=== PATIENT | male | born 1995 | race Caucasian/White ===

== ENCOUNTER → 2016-05-25 | Outpatient (REF) | payer BC ==
[2016-05-25 17:13] LABS: MEAN CORPUSCULAR HEMOGLOBIN 30.8 pg (27.0-33.0); MEAN CORPUSCULAR HGB CONC 34.7 g/dl (32.0-36.5); MEAN CORPUSCULAR VOLUME 88.7 fl (80.0-96.0); RED CELL DISTRIBUTION WIDTH 12.8 % (11.5-14.5); WHITE BLOOD COUNT 8.5 K/mm3 (4.0-10.0)
[2016-05-25 17:42] LABS: ALBUMIN 4.4 GM/DL (3.2-5.2); ALBUMIN/GLOBULIN RATIO 1.42 (1.00-1.93); ALKALINE PHOSPHATASE 107 U/L (45-117); ALT/SGPT 270 U/L (12-78); ANION GAP 11 MEQ/L (8-16); AST/SGOT 101 U/L (15-37); BILIRUBIN,TOTAL 1.4 MG/DL (0.2-1.0); BLOOD UREA NITROGEN 15 MG/DL (7-18); CALCIUM LEVEL 9.4 MG/DL (8.5-10.1); CARBON DIOXIDE LEVEL 28 MEQ/L (21-32); CHLORIDE LEVEL 104 MEQ/L (98-107); CREATININE FOR GFR 0.95 MG/DL (0.70-1.30); GLOMERULAR FILTRATION RATE > 60.0 (>60); GLUCOSE, FASTING 302 MG/DL (70-105); SODIUM LEVEL 143 MEQ/L (136-145); TOTAL PROTEIN 7.5 GM/DL (6.4-8.2)
[2016-05-25 20:13] LABS: BACTERIA, URINE SMALL AMOUNT; HYALINE CAST, URINE NONE SEEN /lpf (0-1); SQUAMOUS EPITHELIAL CELL URINE SMALL AMOUNT /hpf (SMALL AMT)
[2016-05-25 20:14] LABS: MICROSCOPIC EXAM PERFORMED
[2016-05-29 00:08] LABS: GAD-65 AUTOANTIBODY <5.0 U/mL (0.0-5.0)
[2016-05-31 09:06] LABS: GAMMA GLUTAMYLTRANSPEPTIDASE 89 U/L (15-85)
== END ==
LOC: M SFHCLERA 11:56
PROVIDERS: ATTEND Physician Assistant
DX: K21.9 Gastro-esophageal reflux disease without esophagitis (principal); R81 Glycosuria; R82.4 Acetonuria; R31.9 Hematuria, unspecified

== ENCOUNTER 2016-06-26 23:59 | Emergency (ER) | payer BC ==
[2016-06-27] MEDS ORDERED: ONDANSETRON 4MG/2ML VIAL (J2405) As Ordered ONE (01:40)
[2016-06-27 02:22] LABS: BASO % 0.2 % (0.0-1.0); EOS # 0.1 K/mm3 (0.0-0.50); EOS % 0.9 % (0.0-3.0); LARGE UNSTAINED CELL # 0.3 K/mm3 (0.0-0.4); LARGE UNSTAINED CELL % 2.4 % (0.0-4.0); LYMPH # 1.5 K/mm3 (1.5-6.5); LYMPH % 14.6 % (24.0-44.0); MEAN CORPUSCULAR HEMOGLOBIN 29.2 pg (27.0-33.0); MEAN CORPUSCULAR HGB CONC 34.3 g/dl (32.0-36.5); MEAN CORPUSCULAR VOLUME 85.2 fl (80.0-96.0); MONO # 0.6 K/mm3 (0.0-0.8); MONO % 5.6 % (0.0-5.0); NEUTROPHILS # 7.9 K/mm3 (1.8-7.7); NEUTROPHILS % 76.3 % (36.0-66.0); PLATELET COUNT, AUTOMATED 167 k/mm3 (150-450); RED CELL DISTRIBUTION WIDTH 12.9 % (11.5-14.5); WHITE BLOOD COUNT 10.3 K/mm3 (4.0-10.0)
[2016-06-27 02:53] LABS: ALBUMIN 3.7 GM/DL (3.2-5.2); ALBUMIN/GLOBULIN RATIO 1.12 (1.00-1.93); ALKALINE PHOSPHATASE 58 U/L (45-117); ALT/SGPT 193 U/L (12-78); AMYLASE 18 U/L (25-115); ANION GAP 10 MEQ/L (8-16); AST/SGOT 61 U/L (15-37); BILIRUBIN,DIRECT 0.3 MG/DL (0.0-0.2); BILIRUBIN,TOTAL 1.9 MG/DL (0.2-1.0); BLOOD UREA NITROGEN 14 MG/DL (7-18); CALCIUM LEVEL 8.3 MG/DL (8.5-10.1); CARBON DIOXIDE LEVEL 24 MEQ/L (21-32); CHLORIDE LEVEL 108 MEQ/L (98-107); CREATININE FOR GFR 0.83 MG/DL (0.70-1.30); GLOMERULAR FILTRATION RATE > 60.0 (>60); GLUCOSE, FASTING 150 MG/DL (70-105); POTASSIUM SERUM 3.3 MEQ/L (3.5-5.1); SODIUM LEVEL 142 MEQ/L (136-145)
--- NOTE | 2016-06-27 04:55 | EDDOCDS ---
Nurse's Notes [facility] Name: Jules Rowell Age: 21 yrs Sex: Male : 1995 Arrival Date: 06/26/2016 Time: 23:59 Bed 5 Private MD: Diagnosis: Noninfective gastroenteritis and colitis, unspecified Presentation: 06/27 00:34 Presenting complaint: Patient states: Woke Tuesday morning with vomiting and diarrhea. kmg1 Tried BRAT diet and did ok until started feeling ill again at 2200 Tuesday night. Vomiting clear fluid. Diarrhea subsided. Cold chills. Suicide/Homicide risk assessment- the patient denies having any suicidal and/or homicidal ideations and does not present with any other emotional, behavioral or mental health complaints. Status: Patient is not a auto service representative or dependent. Transition of care: patient was not received from another setting of care. 00:34 Method Of Ar[place] [place] Adult Sepsis Screening: The patient does not have new or worsening altered mentation. km Patient's respiratory rate is less than 22. Systolic blood pressure is greater than 100. Patient has a qSOFA score of 0- Negative Sepsis Screen. 00:39 Acuity: [place] [facility] [place]: 00:39 General: Appears in no apparent distress, comfortable, Behavior is appropriate for age, kmg1 cooperative, pleasant. Pain: Location: abdomen Pain currently is 7 out of 10 on a pain scale. Quality of pain is described as crampy, sharp. Pt Declines HIV testing. Respiratory: Reports Chest congestion. GI: Reports nausea, vomiting. Historical: - Allergies: No known drug Allergies; - Home Meds: 1. metformin 500 mg Oral tab 1 tab 2 times per day (Last dose: 06/26/2016 09:00) 2. omeprazole 40 mg Oral cpDR 1 cap once daily (Last dose: 06/26/2016 09:00) - PMHx: Diabetes - NIDDM: controlled; GERD; - PSHx: Tonsillectomy; Tube in Left Ear; - Social history: Smoking status: Patient states was never smoker of tobacco. No barriers to communication noted, The patient speaks fluent Cym[place], Speaks appropriately for age. - Family history: No immediate family members are acutely ill. - : The pt / caregiver states he / she is not on anticoagulants. Home medication list is obtained from the patient. - Exposure Risk Screening:: None identified. Screenin:54 Screening information is obtained from the patient. Fall risk: No risks identified. nn1 Assistance ADL's: requires no assistance with activities of daily living. Abuse/DV Screen: The patient / caregiver reports he/she is: not in a situation that causes fear, pain or injury. Nutritional screening: No deficits noted. Advance Directives: There is no active DNR order. home support is adequate. Assessment: 01:24 General: Appears in no apparent distress, comfortable, Behavior is appropriate for age, nn1 cooperative. Neurological: Level of Consciousness is awake, alert, obeys commands, Oriented to person, place, time. Respiratory: Airway is patent Respiratory effort is even, unlabored, Respiratory pattern is regular, symmetrical, Breath sounds are clear bilaterally. Reports cough that is since yesterday. GI: Abdomen is non- distended obese, Bowel sounds present X 4 quads. Abd is soft X 4 quads Reports diarrhea, nausea, vomiting, Vomiting began Tuesday, had diarrhea on Tuesday but none Tuesday. Derm: Skin is pink, warm & dry. 02:21 General: Patient denies abdominal pain, reports nausea. Patient medicated per orders, nn1 fluids infusing. . 03:18 General: Patient reports nausea has improved. . nn1 04:53 Reassessment: Patient states feeling better. Patient states symptoms have improved. nn1 General: Appears in no apparent distress, comfortable, Behavior is appropriate for age, cooperative. Neurological: Level of Consciousness is awake, alert, Oriented to person, place, time. Respiratory: Airway is patent Respiratory effort is even, unlabored, Respiratory pattern is regular, symmetrical. Derm: Skin is pink, warm & dry. Vital Signs: 00:39 BP 137 / 84; Pulse 113; Resp 18; Temp 98.7(O); Pulse Ox 96% on R/A; Weight 127.01 kg kmg1 (R); Height 6 ft. 0 in. (182.88 cm) (R); Pain 7/10; 04:53 BP 127 / 75; Pulse 95; Resp 18; Temp 99.3(O); Pulse Ox 98% on R/A; Pain 0/10; nn1 00:39 Body Mass Index 37.97 (127.01 kg, 182.88 cm) kmg1 Vitals: 00:39 Log In Time: June 27, 2016 [place] 00:00[place] [facility] [place]: 00:00 Patient visited by Elaine Sarmiento Reg. hs2 00:00 Patient moved to Waiting hs2 00:37 Patient moved to Triage 1 tm5 00:43 Triage Initiated kmg1 00:43 Patient moved to 5 km 01:21 Denys Amaya DO is Attending Physician. mm11 01:21 Patient visited by Denys Amaya DO. mm11 01:35 Patient visited by Denys Amaya DO. mm11 02:20 Liver Profile Sent. nn1 02:20 Lipase Sent. nn1 02:20 CBC with Diff Sent. nn1 02:20 Basic Metabolic Profile Sent. nn1 02:20 Amylase Sent. nn1 02:21 Patient visited by Elaine Trinidad RN. nn1 02:21 Inserted saline lock: 20 gauge in right antecubital area and blood collected. The nn1 patient tolerated the procedure well. 02:35 [facility] Payment Agreement was scanned into [employer] and attached to record. hs2 02:39 Patient name changed from Jules\S\\S\Rowell\S\ to Jules\S\ \S\Rowell. EDMS 02:55 Patient visited by Elaine Trinidad RN. nn1 03:53 Patient visited by Denys Amaya DO. mm11 04:44 Patient visited by Denys Amaya DO. mm11 04:54 The patient / caregiver is instructed regarding the plan of care and ED course. nn1 04:54 No procedures done that require assistance. nn1 Administered Medications: 02:20 Drug: NS 0.9% 1000 ml [sodium chloride 0.9 % intravenous solution] Route: IV; Rate: nn1 bolus; Site: right antecubital; 02:20 Drug: Ondansetron 4 mg [ondansetron HCl 2 mg/mL intravenous solution (2 mL)] Route: nn1 IVP; Site: right antecubital; 03:11 Not Given (Other Intervention Used): Lidocaine Cream 4 % 1 applic Topical once; do not mm11 repeat a dose in less than 2 hours Intake: 04:53 IV: 1000.00ml (NS); Total: 1000.00ml. nn1 Order Results: Lab Order: Amylase; SPEC'M 06/27/16 02:16 Test: AMYLASE; Value: 18; Range: 25-115; Abnormal: Below low normal; Units: U/L; Status: F Lab Order: Basic Metabolic Profile; SPEC'06/27/16 02:16 Test: GLUCOSE, FASTING; Value: 150; Range: 70-105; Abnormal: Above high normal; Units: MG/DL; Status: F Test: BLOOD UREA NITROGEN; Value: 14; Range: 7-18; Units: MG/DL; Status: F Test: CREATININE FOR GFR; Value: 0.83; Range: 0.70-1.30; Units: MG/DL; Status: F Test: GLOMERULAR FILTRATION RATE; Value: > 60.0; Range: >60; Status: F Test: SODIUM LEVEL; Value: 142; Range: 136-145; Units: MEQ/L; Status: F Test: POTASSIUM SERUM; Value: 3.3; Range: 3.5-5.1; Abnormal: Below low normal; Units: MEQ/L; Status: F Test: CHLORIDE LEVEL; Value: 108; Range: 98-107; Abnormal: Above high normal; Units: MEQ/L; Status: F Test: CARBON DIOXIDE LEVEL; Value: 24; Range: 21-32; Units: MEQ/L; Status: F Test: ANION GAP; Value: 10; Range: 8-16; Units: MEQ/L; Status: F Test: CALCIUM LEVEL; Value: 8.3; Range: 8.5-10.1; Abnormal: Below low normal; Units: MG/DL; Status: F Test Note: ; Units are mL/min/1.73 m2 Chronic Kidney Disease Staging per NKF: Stage I & II GFR >=60 Normal to Mildly Decreased Stage III GFR 30-59 Moderately Decreased Stage IV GFR 15-29 Severely Decreased Stage V GFR <15 Very Little GFR Left ESRD 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 <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 Lab Order: CBC with Diff; SPEC06/27/16 02:16 Test: WHITE BLOOD COUNT; Value: 10.3; Range: 4.0-10.0; Abnormal: Above high normal; Units: K/mm3; Status: F Test: RED BLOOD COUNT; Value: 5.52; Range: 4.30-6.10; Units: M/mm3; Status: F Test: HEMOGLOBIN; Value: 16.2; Range: 14.0-18.0; Units: g/dl; Status: F Test: HEMATOCRIT; Value: 47.1; Range: 42.0-52.0; Units: %; Status: F Test: MEAN CORPUSCULAR VOLUME; Value: 85.2; Range: 80.0-96.0; Units: fl; Status: F Test: MEAN CORPUSCULAR HEMOGLOBIN; Value: 29.2; Range: 27.0-33.0; Units: pg; Status: F Test: MEAN CORPUSCULAR HGB CONC; Value: 34.3; Range: 32.0-36.5; Units: g/dl; Status: F Test: RED CELL DISTRIBUTION WIDTH; Value: 12.9; Range: 11.5-14.5; Units: %; Status: F Test: PLATELET COUNT, AUTOMATED; Value: 167; Range: 150-450; Units: k/mm3; Status: F Test: NEUTROPHILS %; Value: 76.3; Range: 36.0-66.0; Abnormal: Above high normal; Units: %; Status: F Test: LYMPH %; Value: 14.6; Range: 24.0-44.0; Abnormal: Below low normal; Units: %; Status: F Test: MONO %; Value: 5.6; Range: 0.0-5.0; Abnormal: Above high normal; Units: %; Status: F Test: EOS %; Value: 0.9; Range: 0.0-3.0; Units: %; Status: F Test: BASO %; Value: 0.2; Range: 0.0-1.0; Units: %; Status: F Test: LARGE UNSTAINED CELL %; Value: 2.4; Range: 0.0-4.0; Units: %; Status: F Test: NEUTROPHILS #; Value: 7.9; Range: 1.8-7.7; Abnormal: Above high normal; Units: K/mm3; Status: F Test: LYMPH #; Value: 1.5; Range: 1.5-6.5; Units: K/mm3; Status: F Test: MONO #; Value: 0.6; Range: 0.0-0.8; Units: K/mm3; Status: F Test: EOS #; Value: 0.1; Range: 0.0-0.50; Units: K/mm3; Status: F Test: BASO #; Value: 0.0; Range: 0.0-0.2; Units: K/mm3; Status: F Test: LARGE UNSTAINED CELL #; Value: 0.3; Range: 0.0-0.4; Units: K/mm3; Status: F Lab Order: Lipase; SPEC' 06/27/16 02:16 Test: LIPASE; Value: 59; Range: 73-393; Abnormal: Below low normal; Units: U/L; Status: F Lab Order: Liver Profile; SPEC' 06/27/16 02:16 Test: AST/SGOT; Value: 61; Range: 15-37; Abnormal: Above high normal; Units: U/L; Status: F Test: ALT/SGPT; Value: 193; Range: 12-78; Abnormal: Above high normal; Units: U/L; Status: F Test: ALKALINE PHOSPHATASE; Value: 58; Range: 45-117; Units: U/L; Status: F Test: BILIRUBIN,TOTAL; Value: 1.9; Range: 0.2-1.0; Abnormal: Above high normal; Units: MG/DL; Status: F Test: BILIRUBIN,DIRECT; Value: 0.3; Range: 0.0-0.2; Abnormal: Above high normal; Units: MG/DL; Status: F Test: TOTAL PROTEIN; Value: 7.0; Range: 6.4-8.2; Units: GM/DL; Status: F Test: ALBUMIN; Value: 3.7; Range: 3.2-5.2; Units: GM/DL; Status: F Test: ALBUMIN/GLOBULIN RATIO; Value: 1.12; Range: 1.00-1.93; Status: F Outcome: 04:45 Discharge ordered by Provider. mm11 04:54 Discharge Assessment: Patient awake, alert and oriented x 3. No cognitive and/or nn1 functional deficits noted. Patient verbalized understanding of disposition instructions. patient administered narcotics - no. The following High Risk Discharge criteria are identified: None. Discharged to home ambulatory. Condition: stable Condition: improved. No special radiology studies were completed. Property :Personal belongings accompany Pt. 04:55 Patient left the ED. nn1 Signatures: Dispatcher [employer] EDMS Elida Mederos, RN RN kmg1 Denys Amaya, DO MATHEWS mm11 Elaine TrinidadRN RN nn1 Elaine Sarmiento, Jorge Reg hs2 Martha Collado RN RN tm5 MTDD
--- NOTE | 2016-06-27 04:55 | EDDOCDS ---
Physician Documentation [facility] Name: Jules Rowell Age: 21 yrs Sex: Male : 1995 Arrival Date: 06/26/2016 Time: 23:59 Bed 5 Private MD: Disposition: 06/27/16 04:45 Discharged to Home/Self Care. Impression: Noninfective gastroenteritis and colitis, unspecified. - Condition is Stable. - Discharge Instructions: Viral Gastroenteritis, Viral Gastroenteritis, [id number]. - Prescriptions for Zofran 4 mg Oral Tablet - take 1 tablet by ORAL route 4 times per day As needed; 10 tablet. - Medication Reconciliation, Local Pharmacy Hours form. - Follow up: Private Physician; When: As needed; Reason: Continuance of care. - Problem is an acute exacerbation. - Symptoms have improved. Historical: - Allergies: No known drug Allergies; - Home Meds: 1. metformin 500 mg Oral tab 1 tab 2 times per day (Last dose: 06/26/2016 09:00) 2. omeprazole 40 mg Oral cpDR 1 cap once daily (Last dose: 06/26/2016 09:00) - PMHx: Diabetes - NIDDM: controlled; GERD; - PSHx: Tonsillectomy; Tube in Left Ear; - Social history: Smoking status: Patient states was never smoker of tobacco. No barriers to communication noted, The patient speaks fluent [place], Speaks appropriately for age. - Family history: No immediate family members are acutely ill. - : The pt / caregiver states he / she is not on anticoagulants. Home medication list is obtained from the patient. - Exposure Risk Screening:: None identified. Vital Signs: 06/27 00:39 BP 137 / 84; Pulse 113; Resp 18; Temp 98.7(O); Pulse Ox 96% on R/A; Weight 127.01 kg / kmg1 280.01 lbs (R); Height 6 ft. 0 in. (182.88 cm) (R); Pain 7/10; 04:53 BP 127 / 75; Pulse 95; Resp 18; Temp 99.3(O); Pulse Ox 98% on R/A; Pain 0/10; nn1 00:39 Body Mass Index 37.97 (127.01 kg, 182.88 cm) km MDM: 01:36 NS 0.9% 1000 ml IV at bolus once ordered. mm11 01:36 Ondansetron 4 mg IVP once ordered. mm11 01:36 IV Saline Lock ordered. mm11 01:36 Undress patient appropriately for examination ordered. mm11 01:37 Amylase Ordered. EDMS 01:37 Basic Metabolic Profile Ordered. EDMS 01:37 CBC with Diff Ordered. EDMS 01:37 Lipase Ordered. EDMS 01:37 Liver Profile Ordered. EDMS 01:38 NOTHING BY MOUTH+DIET ordered. EDMS 02:13 Financial registration complete. hs2 02:35 [facility] Payment Agreement was scanned into [email or web address] and attached to record. hs2 03:07 Amylase Reviewed. mm11 03:07 Basic Metabolic Profile Reviewed. mm11 03:07 CBC with Diff Reviewed. mm11 03:07 Lipase Reviewed. mm11 03:07 Liver Profile Reviewed. mm11 03:08 Lidocaine Cream 4 % 1 applic Topical once; do not repeat a dose in less than 2 hours mm11 ordered. Administered Medications: 02:20 Drug: NS 0.9% 1000 ml [sodium chloride 0.9 % intravenous solution] Route: IV; Rate: nn1 bolus; Site: right antecubital; 02:20 Drug: Ondansetron 4 mg [ondansetron HCl 2 mg/mL intravenous solution (2 mL)] Route: nn1 IVP; Site: right antecubital; 03:11 Not Given (Other Intervention Used): Lidocaine Cream 4 % 1 applic Topical once; do not mm11 repeat a dose in less than 2 hours Signatures: [facility] Elida Mederos RN RN kmg1 Denys Amaya, DO mm11 Elaine Trinidad RN RN nn1 Elaine Sarmiento, Reg Reg hs2 The chart was reviewed and I authenticate all verbal orders and agree with the evaluation and treatment provided.Attachments: 02:35 [facility] Payment Agreement hs2 MTDD
--- NOTE | 2016-06-29 05:57 | EDDOCDS ---
Physician Documentation [facility] Name: Jules Rowell Age: 21 yrs Sex: Male : 1995 Arrival Date: 06/26/2016 Time: 23:59 Bed 5 Private MD: Disposition: 06/27/16 04:45 Discharged to Home/Self Care. Impression: Noninfective gastroenteritis and colitis, unspecified. - Condition is Stable. - Discharge Instructions: Viral Gastroenteritis, Viral Gastroenteritis, [id number]. - Prescriptions for Zofran 4 mg Oral Tablet - take 1 tablet by ORAL route 4 times per day As needed; 10 tablet. - Medication Reconciliation, Local Pharmacy Hours form. - Follow up: Private Physician; When: As needed; Reason: Continuance of care. - Problem is an acute exacerbation. - Symptoms have improved. Historical: - Allergies: No known drug Allergies; - Home Meds: 1. metformin 500 mg Oral tab 1 tab 2 times per day (Last dose: 06/26/2016 09:00) 2. omeprazole 40 mg Oral cpDR 1 cap once daily (Last dose: 06/26/2016 09:00) - PMHx: Diabetes - NIDDM: controlled; GERD; - PSHx: Tonsillectomy; Tube in Left Ear; - Social history: Smoking status: Patient states was never smoker of tobacco. No barriers to communication noted, The patient speaks fluent [place]raini, Speaks appropriately for age. - Family history: No immediate family members are acutely ill. - : The pt / caregiver states he / she is not on anticoagulants. Home medication list is obtained from the patient. - Exposure Risk Screening:: None identified. Vital Signs: 06/27 00:39 BP 137 / 84; Pulse 113; Resp 18; Temp 98.7(O); Pulse Ox 96% on R/A; Weight 127.01 kg / kmg1 280.01 lbs (R); Height 6 ft. 0 in. (182.88 cm) (R); Pain 7/10; 04:53 BP 127 / 75; Pulse 95; Resp 18; Temp 99.3(O); Pulse Ox 98% on R/A; Pain 0/10; nn1 00:39 Body Mass Index 37.97 (127.01 kg, 182.88 cm) km MDM: 01:36 NS 0.9% 1000 ml IV at bolus once ordered. mm11 01:36 Ondansetron 4 mg IVP once ordered. mm11 01:36 IV Saline Lock ordered. mm11 01:36 Undress patient appropriately for examination ordered. mm11 01:37 Amylase Ordered. EDMS 01:37 Basic Metabolic Profile Ordered. EDMS 01:37 CBC with Diff Ordered. EDMS 01:37 Lipase Ordered. EDMS 01:37 Liver Profile Ordered. EDMS 01:38 NOTHING BY MOUTH+DIET ordered. EDMS 02:13 Financial registration complete. hs2 02:35 [facility] Payment Agreement was scanned into [employer] and attached to record. hs2 03:07 Amylase Reviewed. mm11 03:07 Basic Metabolic Profile Reviewed. mm11 03:07 CBC with Diff Reviewed. mm11 03:07 Lipase Reviewed. mm11 03:07 Liver Profile Reviewed. mm11 03:08 Lidocaine Cream 4 % 1 applic Topical once; do not repeat a dose in less than 2 hours mm11 ordered. 22:17 T-Sheet-- Draft Copy was scanned into [employer] and attached to record. klr Administered Medications: 02:20 Drug: NS 0.9% 1000 ml [sodium chloride 0.9 % intravenous solution] Route: IV; Rate: nn1 bolus; Site: right antecubital; 04:55 Follow up: IV Status: Completed infusion; IV Intake: 1000ml nn1 02:20 Drug: Ondansetron 4 mg [ondansetron HCl 2 mg/mL intravenous solution (2 mL)] Route: nn1 IVP; Site: right antecubital; 03:11 Not Given (Other Intervention Used): Lidocaine Cream 4 % 1 applic Topical once; do not mm11 repeat a dose in less than 2 hours Signatures: Dispatcher [employer] EDMS Elida Mederos RN RN kmg1 Denys Amaya, DO DO mm11 Elaine Trinidad RN RN nn1 Elaine Sarmiento, Reg Reg hs2 Erin Cesar klr The chart was reviewed and I authenticate all verbal orders and agree with the evaluation and treatment provided.Attachments: 02:35 [facility] Payment Agreement hs2 22:17 T-Sheet-- Draft Copy klr Chart Complete MTDD
--- NOTE | 2016-06-29 05:57 | EDDOCDS ---
Nurse's Notes [facility] Name: Jules Rowell Age: 21 yrs Sex: Male : 1995 Arrival Date: 06/26/2016 Time: 23:59 Bed 5 Private MD: Diagnosis: Noninfective gastroenteritis and colitis, unspecified Presentation: 06/27 00:34 Presenting complaint: Patient states: Woke Tuesday morning with vomiting and diarrhea. kmg1 Tried BRAT diet and did ok until started feeling ill again at 2200 Tuesday night. Vomiting clear fluid. Diarrhea subsided. Cold chills. Suicide/Homicide risk assessment- the patient denies having any suicidal and/or homicidal ideations and does not present with any other emotional, behavioral or mental health complaints. 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 Transition of care: patient was not received from another setting of care. 00:34 Method Of Arrival: [facility] 00:39 Adult Sepsis Screening: The patient does not have new or worsening altered mentation. km Patient's respiratory rate is less than 22. Systolic blood pressure is greater than 100. Patient has a qSOFA score of 0- Negative Sepsis Screen. 00:39 Acuity: RAULITO Level 3 [facility] Triage Assessment: 00:39 General: Appears in no apparent distress, comfortable, Behavior is appropriate for age, kmg1 cooperative, pleasant. Pain: Location: abdomen Pain currently is 7 out of 10 on a pain scale. Quality of pain is described as crampy, sharp. Pt Declines HIV testing. Respiratory: Reports Chest congestion. GI: Reports nausea, vomiting. Historical: - Allergies: No known drug Allergies; - Home Meds: 1. metformin 500 mg Oral tab 1 tab 2 times per day (Last dose: 06/26/2016 09:00) 2. omeprazole 40 mg Oral cpDR 1 cap once daily (Last dose: 06/26/2016 09:00) - PMHx: Diabetes - NIDDM: controlled; GERD; - PSHx: Tonsillectomy; Tube in Left Ear; - Social history: Smoking status: Patient states was never smoker of tobacco. No barriers to communication noted, The patient speaks fluent Kenyan, Speaks appropriately for age. - Family history: No immediate family members are acutely ill. - : The pt / caregiver states he / she is not on anticoagulants. Home medication list is obtained from the patient. - Exposure Risk Screening:: None identified. Screenin:54 Screening information is obtained from the patient. Fall risk: No risks identified. nn1 Assistance ADL's: requires no assistance with activities of daily living. Abuse/DV Screen: The patient / caregiver reports he/she is: not in a situation that causes fear, pain or injury. Nutritional screening: No deficits noted. Advance Directives: There is no active DNR order. home support is adequate. Assessment: 01:24 General: Appears in no apparent distress, comfortable, Behavior is appropriate for age, nn1 cooperative. Neurological: Level of Consciousness is awake, alert, obeys commands, Oriented to person, place, time. Respiratory: Airway is patent Respiratory effort is even, unlabored, Respiratory pattern is regular, symmetrical, Breath sounds are clear bilaterally. Reports cough that is since yesterday. GI: Abdomen is non- distended obese, Bowel sounds present X 4 quads. Abd is soft X 4 quads Reports diarrhea, nausea, vomiting, Vomiting began Tuesday, had diarrhea on Tuesday but none Tuesday. Derm: Skin is pink, warm & dry. 02:21 General: Patient denies abdominal pain, reports nausea. Patient medicated per orders, nn1 fluids infusing. . 03:18 General: Patient reports nausea has improved. . nn1 04:53 Reassessment: Patient states feeling better. Patient states symptoms have improved. nn1 General: Appears in no apparent distress, comfortable, Behavior is appropriate for age, cooperative. Neurological: Level of Consciousness is awake, alert, Oriented to person, place, time. Respiratory: Airway is patent Respiratory effort is even, unlabored, Respiratory pattern is regular, symmetrical. Derm: Skin is pink, warm & dry. Vital Signs: 00:39 BP 137 / 84; Pulse 113; Resp 18; Temp 98.7(O); Pulse Ox 96% on R/A; Weight 127.01 kg kmg1 (R); Height 6 ft. 0 in. (182.88 cm) (R); Pain 7/10; 04:53 BP 127 / 75; Pulse 95; Resp 18; Temp 99.3(O); Pulse Ox 98% on R/A; Pain 0/10; nn1 00:39 Body Mass Index 37.97 (127.01 kg, 182.88 cm) kmg1 Vitals: 00:39 Log In Time: June 27, 2016 at 00:00. [facility] ED Course: 00:00 Patient visited by Elaine Sarmiento Reg. hs2 00:00 Patient moved to Waiting hs2 00:37 Patient moved to Triage 1 tm5 00:43 Triage Initiated kmg1 00:43 Patient moved to 5 km 01:21 Denys Amaya DO is Attending Physician. mm11 01:21 Patient visited by Denys Amaya DO. mm11 01:35 Patient visited by Denys Amaya DO. mm11 02:20 Liver Profile Sent. nn1 02:20 Lipase Sent. nn1 02:20 CBC with Diff Sent. nn1 02:20 Basic Metabolic Profile Sent. nn1 02:20 Amylase Sent. nn1 02:21 Patient visited by Elaine Trinidad RN. nn1 02:21 Inserted saline lock: 20 gauge in right antecubital area and blood collected. The nn1 patient tolerated the procedure well. 02:35 [facility] Payment Agreement was scanned into [employer] and attached to record. hs2 02:39 Patient name changed from Jules\S\\S\Rowell\S\ to Jules\S\ \S\Rowell. EDMS 02:55 Patient visited by Elaine Trinidad RN. nn1 03:53 Patient visited by Denys Amaya DO. mm11 04:44 Patient visited by Denys Amaya DO. mm11 04:54 The patient / caregiver is instructed regarding the plan of care and ED course. nn1 04:54 No procedures done that require assistance. nn1 22:17 T-Sheet-- Draft Copy was scanned into [employer] and attached to record. klr Administered Medications: 02:20 Drug: NS 0.9% 1000 ml [sodium chloride 0.9 % intravenous solution] Route: IV; Rate: nn1 bolus; Site: right antecubital; 04:55 Follow up: IV Status: Completed infusion; IV Intake: 1000ml nn1 02:20 Drug: Ondansetron 4 mg [ondansetron HCl 2 mg/mL intravenous solution (2 mL)] Route: nn1 IVP; Site: right antecubital; 03:11 Not Given (Other Intervention Used): Lidocaine Cream 4 % 1 applic Topical once; do not mm11 repeat a dose in less than 2 hours Intake: 04:53 IV: 1000.00ml (NS); Total: 1000.00ml. nn1 04:55 IV: 1000.00ml; Total: 2000.00ml. nn1 Order Results: Lab Order: Amylase; [facility] 06/27/16 02:16 Test: AMYLASE; Value: 18; Range: 25-115; Abnormal: Below low normal; Units: U/L; Status: F Lab Order: Basic Metabolic Profile; [facility] 06/27/16 02:16 Test: GLUCOSE, FASTING; Value: 150; Range: 70-105; Abnormal: Above high normal; Units: MG/DL; Status: F Test: BLOOD UREA NITROGEN; Value: 14; Range: 7-18; Units: MG/DL; Status: F Test: CREATININE FOR GFR; Value: 0.83; Range: 0.70-1.30; Units: MG/DL; Status: F Test: GLOMERULAR FILTRATION RATE; Value: > 60.0; Range: >60; Status: F Test: SODIUM LEVEL; Value: 142; Range: 136-145; Units: MEQ/L; Status: F Test: POTASSIUM SERUM; Value: 3.3; Range: 3.5-5.1; Abnormal: Below low normal; Units: MEQ/L; Status: F Test: CHLORIDE LEVEL; Value: 108; Range: 98-107; Abnormal: Above high normal; Units: MEQ/L; Status: F Test: CARBON DIOXIDE LEVEL; Value: 24; Range: 21-32; Units: MEQ/L; Status: F Test: ANION GAP; Value: 10; Range: 8-16; Units: MEQ/L; Status: F Test: CALCIUM LEVEL; Value: 8.3; Range: 8.5-10.1; Abnormal: Below low normal; Units: MG/DL; Status: F Test Note: ; Units are mL/min/1.73 m2 Chronic Kidney Disease Staging per NKF: Stage I & II GFR >=60 Normal to Mildly Decreased Stage III GFR 30-59 Moderately Decreased Stage IV GFR 15-29 Severely Decreased Stage V GFR <15 Very Little GFR Left ESRD 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 <15 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: CBC with Diff; SPEC' 06/27/16 02:16 Test: WHITE BLOOD COUNT; Value: 10.3; Range: 4.0-10.0; Abnormal: Above high normal; Units: K/mm3; Status: F Test: RED BLOOD COUNT; Value: 5.52; Range: 4.30-6.10; Units: M/mm3; Status: F Test: HEMOGLOBIN; Value: 16.2; Range: 14.0-18.0; Units: g/dl; Status: F Test: HEMATOCRIT; Value: 47.1; Range: 42.0-52.0; Units: %; Status: F Test: MEAN CORPUSCULAR VOLUME; Value: 85.2; Range: 80.0-96.0; Units: fl; Status: F Test: MEAN CORPUSCULAR HEMOGLOBIN; Value: 29.2; Range: 27.0-33.0; Units: pg; Status: F Test: MEAN CORPUSCULAR HGB CONC; Value: 34.3; Range: 32.0-36.5; Units: g/dl; Status: F Test: RED CELL DISTRIBUTION WIDTH; Value: 12.9; Range: 11.5-14.5; Units: %; Status: F Test: PLATELET COUNT, AUTOMATED; Value: 167; Range: 150-450; Units: k/mm3; Status: F Test: NEUTROPHILS %; Value: 76.3; Range: 36.0-66.0; Abnormal: Above high normal; Units: %; Status: F Test: LYMPH %; Value: 14.6; Range: 24.0-44.0; Abnormal: Below low normal; Units: %; Status: F Test: MONO %; Value: 5.6; Range: 0.0-5.0; Abnormal: Above high normal; Units: %; Status: F Test: EOS %; Value: 0.9; Range: 0.0-3.0; Units: %; Status: F Test: BASO %; Value: 0.2; Range: 0.0-1.0; Units: %; Status: F Test: LARGE UNSTAINED CELL %; Value: 2.4; Range: 0.0-4.0; Units: %; Status: F Test: NEUTROPHILS #; Value: 7.9; Range: 1.8-7.7; Abnormal: Above high normal; Units: K/mm3; Status: F Test: LYMPH #; Value: 1.5; Range: 1.5-6.5; Units: K/mm3; Status: F Test: MONO #; Value: 0.6; Range: 0.0-0.8; Units: K/mm3; Status: F Test: EOS #; Value: 0.1; Range: 0.0-0.50; Units: K/mm3; Status: F Test: BASO #; Value: 0.0; Range: 0.0-0.2; Units: K/mm3; Status: F Test: LARGE UNSTAINED CELL #; Value: 0.3; Range: 0.0-0.4; Units: K/mm3; Status: F Lab Order: Lipase; SPEC' 06/27/16 02:16 Test: LIPASE; Value: 59; Range: 73-393; Abnormal: Below low normal; Units: U/L; Status: F Lab Order: Liver Profile; SPEC' 06/27/16 02:16 Test: AST/SGOT; Value: 61; Range: 15-37; Abnormal: Above high normal; Units: U/L; Status: F Test: ALT/SGPT; Value: 193; Range: 12-78; Abnormal: Above high normal; Units: U/L; Status: F Test: ALKALINE PHOSPHATASE; Value: 58; Range: 45-117; Units: U/L; Status: F Test: BILIRUBIN,TOTAL; Value: 1.9; Range: 0.2-1.0; Abnormal: Above high normal; Units: MG/DL; Status: F Test: BILIRUBIN,DIRECT; Value: 0.3; Range: 0.0-0.2; Abnormal: Above high normal; Units: MG/DL; Status: F Test: TOTAL PROTEIN; Value: 7.0; Range: 6.4-8.2; Units: GM/DL; Status: F Test: ALBUMIN; Value: 3.7; Range: 3.2-5.2; Units: GM/DL; Status: F Test: ALBUMIN/GLOBULIN RATIO; Value: 1.12; Range: 1.00-1.93; Status: F Outcome: 04:45 Discharge ordered by Provider. mm11 04:54 Discharge Assessment: Patient awake, alert and oriented x 3. No cognitive and/or nn1 functional deficits noted. Patient verbalized understanding of disposition instructions. patient administered narcotics - no. The following High Risk Discharge criteria are identified: None. Discharged to home ambulatory. Condition: stable Condition: improved. No special radiology studies were completed. Property :Personal belongings accompany Pt. 04:55 Patient left the ED. nn1 Signatures: Dispatcher [employer] EDMS Elida Mederos, RN RN kmg1 Denys Amaya, DO mm11 Elaine TrinidadRN RN nn1 Elaine Sarmiento, Reg Reg hs2 Erin Cesar Tonya, RN RN tm5 Chart Complete MTDD
--- NOTE | 2016-06-29 05:57 | EDDOCDS ---
Physician Documentation [facility] Name: Jules Rowell Age: 21 yrs Sex: Male : 1995 Arrival Date: 06/26/2016 Time: 23:59 Bed 5 Private MD: Disposition: 06/27/16 04:45 Discharged to Home/Self Care. Impression: Noninfective gastroenteritis and colitis, unspecified. - Condition is Stable. - Discharge Instructions: Viral Gastroenteritis, Viral Gastroenteritis, Phiq-up-Ibzl. - Prescriptions for Zofran 4 mg Oral Tablet - take 1 tablet by ORAL route 4 times per day As needed; 10 tablet. - Medication Reconciliation, Local Pharmacy Hours form. - Follow up: Private Physician; When: As needed; Reason: Continuance of care. - Problem is an acute exacerbation. - Symptoms have improved. Historical: - Allergies: No known drug Allergies; - Home Meds: 1. metformin 500 mg Oral tab 1 tab 2 times per day (Last dose: 06/26/2016 09:00) 2. omeprazole 40 mg Oral cpDR 1 cap once daily (Last dose: 06/26/2016 09:00) - PMHx: Diabetes - NIDDM: controlled; GERD; - PSHx: Tonsillectomy; Tube in Left Ear; - Social history: Smoking status: Patient states was never smoker of tobacco. No barriers to communication noted, The patient speaks fluent Turkish, Speaks appropriately for age. - Family history: No immediate family members are acutely ill. - : The pt / caregiver states he / she is not on anticoagulants. Home medication list is obtained from the patient. - Exposure Risk Screening:: None identified. Vital Signs: 06/27 00:39 BP 137 / 84; Pulse 113; Resp 18; Temp 98.7(O); Pulse Ox 96% on R/A; Weight 127.01 kg / kmg1 280.01 lbs (R); Height 6 ft. 0 in. (182.88 cm) (R); Pain 7/10; 04:53 BP 127 / 75; Pulse 95; Resp 18; Temp 99.3(O); Pulse Ox 98% on R/A; Pain 0/10; nn1 00:39 Body Mass Index 37.97 (127.01 kg, 182.88 cm) km MDM: 01:36 NS 0.9% 1000 ml IV at bolus once ordered. mm11 01:36 Ondansetron 4 mg IVP once ordered. mm11 01:36 IV Saline Lock ordered. mm11 01:36 Undress patient appropriately for examination ordered. mm11 01:37 Amylase Ordered. EDMS 01:37 Basic Metabolic Profile Ordered. EDMS 01:37 CBC with Diff Ordered. EDMS 01:37 Lipase Ordered. EDMS 01:37 Liver Profile Ordered. EDMS 01:38 NOTHING BY MOUTH+DIET ordered. EDMS 02:13 Financial registration complete. hs2 02:35 [facility] Payment Agreement was scanned into [employer] and attached to record. hs2 03:07 Amylase Reviewed. mm11 03:07 Basic Metabolic Profile Reviewed. mm11 03:07 CBC with Diff Reviewed. mm11 03:07 Lipase Reviewed. mm11 03:07 Liver Profile Reviewed. mm11 03:08 Lidocaine Cream 4 % 1 applic Topical once; do not repeat a dose in less than 2 hours mm11 ordered. 22:17 T-Sheet-- Draft Copy was scanned into [employer] and attached to record. klr Administered Medications: 02:20 Drug: NS 0.9% 1000 ml [sodium chloride 0.9 % intravenous solution] Route: IV; Rate: nn1 bolus; Site: right antecubital; 04:55 Follow up: IV Status: Completed infusion; IV Intake: 1000ml nn1 02:20 Drug: Ondansetron 4 mg [ondansetron HCl 2 mg/mL intravenous solution (2 mL)] Route: nn1 IVP; Site: right antecubital; 03:11 Not Given (Other Intervention Used): Lidocaine Cream 4 % 1 applic Topical once; do not mm11 repeat a dose in less than 2 hours Signatures: Dispatcher [employer] EDMS Elida Mederos RN RN kmg1 Denys Amaya, DO DO mm11 Elaine Trinidad RN RN nn1 Elaine Sarmiento, Reg Reg hs2 Erin Cesar klr The chart was reviewed and I authenticate all verbal orders and agree with the evaluation and treatment provided.Attachments: 02:35 [facility] Payment Agreement hs2 22:17 T-Sheet-- Draft Copy klr Chart Complete MTDD
== END 2016-06-27 04:55 | disposition home or self-care (01) ==
LOC: M ED 23:59
DX: A08.4 Viral intestinal infection, unspecified (principal); E11.9 Type 2 diabetes mellitus without complications; K21.9 Gastro-esophageal reflux disease without esophagitis; Z79.899 Other long term (current) drug therapy; Z79.84 Long term (current) use of oral hypoglycemic drugs
CPT/HCPCS: 36415; 80048; 80076; 82150; 83690; 85025; 96361; 96374; 99283; J2405

== ENCOUNTER → 2016-10-12 | Outpatient (REF) | payer BC ==
[2016-10-12 12:15] LABS: ALBUMIN 4.1 GM/DL (3.2-5.2); ALBUMIN/GLOBULIN RATIO 1.41 (1.00-1.93); ALKALINE PHOSPHATASE 69 U/L (45-117); ALT/SGPT 114 U/L (12-78); ANION GAP 4 MEQ/L (8-16); AST/SGOT 35 U/L (15-37); BILIRUBIN,TOTAL 1.1 MG/DL (0.2-1.0); BLOOD UREA NITROGEN 15 MG/DL (7-18); CALCIUM LEVEL 9.1 MG/DL (8.5-10.1); CARBON DIOXIDE LEVEL 30 MEQ/L (21-32); CHLORIDE LEVEL 107 MEQ/L (98-107); CHOLESTEROL LEVEL 146 MG/DL (<200); CREATININE FOR GFR 0.78 MG/DL (0.70-1.30); GLOMERULAR FILTRATION RATE > 60.0 (>60); GLUCOSE, FASTING 162 MG/DL (70-105); POTASSIUM SERUM 4.5 MEQ/L (3.5-5.1); SODIUM LEVEL 141 MEQ/L (136-145); TRIGLYCERIDES LEVEL 184 MG/DL (<150)
== END ==
LOC: M SFHCLERA 08:01
PROVIDERS: ATTEND Physician Assistant
DX: Z13.220 Encounter for screening for lipoid disorders (principal); E11.65 Type 2 diabetes mellitus with hyperglycemia

== ENCOUNTER → 2017-01-12 | Outpatient (REF) | payer BC ==
[2017-01-12 12:14] LABS: ALBUMIN 4.2 GM/DL (3.2-5.2); ALBUMIN/GLOBULIN RATIO 1.27 (1.00-1.93); ALKALINE PHOSPHATASE 76 U/L (45-117); ALT/SGPT 129 U/L (12-78); ANION GAP 9 MEQ/L (8-16); AST/SGOT 40 U/L (15-37); BILIRUBIN,TOTAL 1.3 MG/DL (0.2-1.0); BLOOD UREA NITROGEN 12 MG/DL (7-18); CALCIUM LEVEL 9.7 MG/DL (8.5-10.1); CARBON DIOXIDE LEVEL 27 MEQ/L (21-32); CHLORIDE LEVEL 107 MEQ/L (98-107); CHOLESTEROL LEVEL 151 MG/DL (<200); CREATININE FOR GFR 0.73 MG/DL (0.70-1.30); GLOMERULAR FILTRATION RATE > 60.0 (>60); GLUCOSE, FASTING 126 MG/DL (70-105); POTASSIUM SERUM 4.5 MEQ/L (3.5-5.1); SODIUM LEVEL 143 MEQ/L (136-145); TOTAL PROTEIN 7.5 GM/DL (6.4-8.2); TRIGLYCERIDES LEVEL 123 MG/DL (<150)
== END ==
LOC: M SFHCLERA 09:30
PROVIDERS: ATTEND Physician Assistant
DX: Z13.220 Encounter for screening for lipoid disorders (principal); I10 Essential (primary) hypertension; E11.65 Type 2 diabetes mellitus with hyperglycemia

== ENCOUNTER → 2017-08-29 | Outpatient (REF) | payer BC ==
[2017-08-29 12:17] LABS: ALBUMIN 4.2 GM/DL (3.2-5.2); ALKALINE PHOSPHATASE 58 U/L (45-117); ALT/SGPT 104 U/L (12-78); ANION GAP 4 MEQ/L (8-16); AST/SGOT 62 U/L (7-37); BILIRUBIN,TOTAL 1.3 MG/DL (0.2-1.0); BLOOD UREA NITROGEN 10 MG/DL (7-18); CALCIUM LEVEL 9.4 MG/DL (8.5-10.1); CARBON DIOXIDE LEVEL 30 MEQ/L (21-32); CHLORIDE LEVEL 108 MEQ/L (98-107); CHOLESTEROL LEVEL 114 MG/DL (<200); CHOLESTEROL RISK RATIO 3.352 (<5); CREATININE FOR GFR 0.86 MG/DL (0.70-1.30); GLOMERULAR FILTRATION RATE > 60.0 (>60); GLUCOSE, FASTING 110 MG/DL (70-100); HDL CHOLESTEROL 34 MG/DL (>40); LDL CHOLESTEROL 63.6 MG/DL (<100); NON-HDL-C 80 MG/DL; POTASSIUM SERUM 4.9 MEQ/L (3.5-5.1); SODIUM LEVEL 142 MEQ/L (136-145); TRIGLYCERIDES LEVEL 82 MG/DL (<150)
[2017-08-29 13:09] LABS: ESTIMATED AVERAGE GLUCOSE 131 MG/DL (60-110); HEMOGLOBIN A1c 6.2 %
== END ==
LOC: M SFHCLERA 08:43
DX: Z13.220 Encounter for screening for lipoid disorders (principal); E11.65 Type 2 diabetes mellitus with hyperglycemia
CPT/HCPCS: 80053

== ENCOUNTER → 2018-01-30 | Outpatient (CLI) | payer OTHER, BC | LOC: M SLEEP HO 13:03 | DX: G47.30 Sleep apnea, unspecified (principal) | CPT/HCPCS: G0399 ==